=== PATIENT | male | born 1970 | race Caucasian/White ===

== ENCOUNTER 2017-10-27 00:56 | Emergency (ER) | payer BC ==
[2017-10-27 01:11] VITALS: BP 164/91
[2017-10-27 03:27] LABS: APPEARANCE,URINE CLEAR; BILIRUBIN,URINE NEGATIVE (NEGATIVE); COLOR,URINE YELLOW; GLUCOSE, URINE NEGATIVE (NEGATIVE); KETONES,URINE NEGATIVE (NEGATIVE); LEUKOCYTE ESTERASE,URINE NEGATIVE (NEGATIVE); NITRITE,URINE NEGATIVE (NEGATIVE); PROTEIN,URINE NEGATIVE (NEGATIVE); URINE SPECIFIC GRAVITY 1.012; UROBILINOGEN,URINE NEGATIVE mg/dL (<2.0)
[2017-10-27] MEDS ORDERED: TAMSULOSIN HCL 0.4 MG CAP.SR.24H PO ONE (04:00)
--- NOTE | 2017-10-27 04:00 | ER Document Report ---
ED General - General Chief Complaint: Flank Pain Stated Complaint: FLANK PAIN Time Seen by Provider: 10/27/17 02:46 Mode of Arrival: Ambulatory Information source: Patient Notes: 47-year-old male patient with history of kidney stones presents with complaint of resolved left flank pain. Patient reports that the pain woke him up approximately 2 hours prior to arrival, describes the pain as a sharp stabbing pain in the left flank. Reports that the pain felt similar to when he has had kidney stones in the past. Patient reports that just prior to arrival to the emergency department he believes he passed the kidney stone. Patient reports complete resolution of his symptoms prior to checking into the emergency department this evening. Patient denies any other symptoms to include urinary pain, frequency or fever. Patient did not have any nausea or vomiting. TRAVEL OUTSIDE OF THE [place] IN LAST 30 DAYS: No - Related Data Allergies/Adverse Reactions: Penicillins Allergy (Verified 10/27/17 01:08) Past Medical History - General Information source: Patient - Social History Smoking Status: Never Smoker Chew tobacco use (# tins/day): No Frequency of alcohol use: None Drug Abuse: None Family History: Reviewed & Not Pertinent Patient has suicidal ideation: No Patient has homicidal ideation: No - Past Medical History Cardiac Medical History: Reports: Hx Hypertension Renal/ Medical History: Reports: Hx Kidney Stones. Denies: Hx Peritoneal Dialysis Past Surgical History: Reports: Hx Appendectomy, Hx Cholecystectomy, Hx Orthopedic Surgery Review of Systems - Review of Systems Constitutional: No symptoms reported EENT: No symptoms reported Cardiovascular: No symptoms reported Respiratory: No symptoms reported Gastrointestinal: No symptoms reported Genitourinary: No symptoms reported Male Genitourinary: No symptoms reported Musculoskeletal: No symptoms reported Skin: No symptoms reported Hematologic/Lymphatic: No symptoms reported Neurological/Psychological: No symptoms reported Physical Exam - Vital signs Vitals: Temp Pulse Resp BP Pulse Ox 98.8 F 79 16 164/91 H 99 10/27/17 01:10 10/27/17 01:10 10/27/17 01:10 10/27/17 01:10 10/27/17 01:10 - Notes Notes: PHYSICAL EXAMINATION: GENERAL: Well-appearing, well-nourished and in no acute distress. HEAD: Atraumatic, normocephalic. EYES: Pupils equal round and reactive to light, extraocular movements intact, sclera anicteric, conjunctiva are normal. ENT: Nares patent, oropharynx clear without exudates. Moist mucous membranes. NECK: Normal range of motion, supple without lymphadenopathy LUNGS: Breath sounds clear to auscultation bilaterally and equal. No wheezes rales or rhonchi. HEART: Regular rate and rhythm without murmurs ABDOMEN: Soft, nontender, nondistended abdomen. No guarding, no rebound. No masses appreciated. GENITOURINARY: Mild CVA tenderness to left side. Musculoskeletal: Normal range of motion, no pitting or edema. No cyanosis. NEUROLOGICAL: Cranial nerves grossly intact. Normal speech, normal gait. Normal sensory, motor exams PSYCH: Normal mood, normal affect. SKIN: Warm, Dry, normal turgor, no rashes or lesions noted. Course - Re-evaluation Re-evalutation: On initial evaluation, patient reports that if symptoms have completely resolved. Patient declines CT scan. Urinalysis was sent and shows moderate blood, no signs of infection. Will discharge patient home on Flomax. Patient is from out of town and reports that he has his own primary care provider as well as urologist. Patient reports he will call his primary care provider to set up a follow-up appointment for early next week. Patient encouraged to return to the emergency department if he develops any worsening symptoms or development of fever. - Vital Signs Vital signs: Temp Pulse Resp BP Pulse Ox 98.8 F 79 16 164/91 H 99 10/27/17 01:10 10/27/17 01:10 10/27/17 01:10 10/27/17 01:10 10/27/17 01:10 - Laboratory Laboratory results interpreted by me: 10/27/17 02:50 Urine Blood MODERATE H Discharge - Discharge Clinical Impression: Kidney stone Condition: Stable Disposition: HOME, SELF-CARE Additional Instructions: Kidney Stone You are passing or have passed a kidney stone. These stones are usually due to increased calcium or uric acid concentrations in your urine. Stones within the kidney itself are not painful. The pain occurs as the stone leaves the kidney to pass down the long tube, called the ureter, leading to the bladder. If the stone is small, it will usually pass by itself. Most patients can pass the stone at home. You will usually receive medications for pain, nausea or vomiting, and sometimes a medication to assist in passing the kidney stone. However, if the pain is very severe or if vomiting prevents you from taking oral pain medications, you may need to return for further treatment. Drink three or four quarts of fluids per day. You will be given pain medication (if needed) and urine strainers. Strain all your urine to see if the stone passes. If your doctor has asked you to bring the stone in for analysis, return with the stone once it has passed. Return if pain or vomiting become severe, if you develop a high fever, if you are unable to pass your urine, or if other unusual symptoms occur. Prescriptions: Tamsulosin HCl [Flomax 0.4 mg Cap.sr] 0.4 mg PO DAILY #7 [id number] Referrals: [facility]AL[facility],NO [Primary Care Provider] - Follow up as needed
== END 2017-10-27 04:06 | disposition home or self-care (01) ==
LOC: ER 00:56
DX: N20.0 Calculus of kidney (principal); I10 Essential (primary) hypertension; Z88.0 Allergy status to penicillin
CPT/HCPCS: 81001; 99284